=== PATIENT | female | born 1985 | race Caucasian/White ===

== ENCOUNTER → 2019-12-14 16:04 | Outpatient (BNVA) | payer MEDICAID, SELFPAY | PROVIDERS: Family Provider Nurse Practitioner; PCP Nurse Practitioner; Visit Provider Obstetrics & Gynecology | DX: O09.93 Supervision of high risk pregnancy, unspecified, third trimester (principal); Z3A.00 Weeks of gestation of pregnancy not specified | CPT/HCPCS: 80307; 81000; 85007; 85027 ==

== ENCOUNTER → 2019-12-18 10:49 | Outpatient (BNVA) | payer MEDICAID, SELFPAY | PROVIDERS: Family Provider Nurse Practitioner; PCP Nurse Practitioner; Visit Provider Obstetrics & Gynecology | DX: Z34.93 Encounter for supervision of normal pregnancy, unspecified, third trimester (principal); Z3A.34 34 weeks gestation of pregnancy | CPT/HCPCS: 76815 ==

== ENCOUNTER → 2019-12-21 08:46 | Outpatient (BNVA) | payer MEDICAID, SELFPAY | PROVIDERS: Family Provider Nurse Practitioner; PCP Nurse Practitioner; Visit Provider Obstetrics & Gynecology | DX: O09.10 Supervision of pregnancy with history of ectopic pregnancy, unspecified trimester (principal); O09.93 Supervision of high risk pregnancy, unspecified, third trimester; Z98.891 History of uterine scar from previous surgery; Z30.2 Encounter for sterilization; Z3A.00 Weeks of gestation of pregnancy not specified | CPT/HCPCS: 83986; 84315; 87081 ==

== ENCOUNTER → 2019-12-28 10:44 | Day surgery (SDC) | payer MEDICAID, SELFPAY ==
[2019-12-28 10:56] VITALS: BP 131/80; PULSE 84; RESP 18; TEMP 36.6; O2SAT 97; BMI 39.6
[2019-12-28] MEDS: betamethasone susp 6 mg/mL 5 mL 12 MG IM (11:20)
== END ==
PROVIDERS: PCP Nurse Practitioner Family; Visit Provider Obstetrics & Gynecology
DX: Z98.891 History of uterine scar from previous surgery (principal); Z34.90 Encounter for supervision of normal pregnancy, unspecified, unspecified trimester; Z3A.00 Weeks of gestation of pregnancy not specified; Z30.2 Encounter for sterilization
CPT/HCPCS: 84315; 96372; J0702

== ENCOUNTER 2019-12-29 10:15 | Outpatient (CLI) | payer MEDICAID, SELFPAY ==
[2019-12-29] MEDS: betamethasone susp 6 mg/mL 5 mL 12 MG IM (10:44)
== END 2019-12-29 10:16 | disposition home or self-care (01) ==
LOC: OPOB 11:06
PROVIDERS: PCP Nurse Practitioner Family; Visit Provider Obstetrics & Gynecology
DX: O26.899 Other specified pregnancy related conditions, unspecified trimester (principal); Z3A.00 Weeks of gestation of pregnancy not specified
CPT/HCPCS: 96372; J0702

== ENCOUNTER 2020-01-01 05:21 | Inpatient (IN) | payer MEDICAID, SELFPAY ==
--- NOTE | 2019-12-28 11:07 | P.ANESASSM_ITS ---
Pre-Anesthetic Assessment Pre-Anesthetic Assessment: Height/Weight: Height 1.73 m Proposed Procedure: Operation Date: 01/01/20 11:00 Proposed Procedures p Section Repeat With Tubal [id number] Z34.90 Z98.891 Z30.2(Not Applicable) - Patel Leon MD Social: Social History: Tobacco and No alcohol Exam: Pre-Anes Outpt Exam: alert, oriented x 3, clear to auscultation bilaterally and regular rate & rhythm Airway: Submandibular: WNL Cervical ROM: WNL MP: 1 Dentition: Other (teeth ok) History/ROS: No significant history except as noted Pulmonary: Pulmonary: None reported CV/HEM: CV/HEM: None reported : : None reported Hepatic: Hepatic: None reported GI: GI: None reported Metabolic: Metabolic: Morbid obesity Musc/skel: Musc/skel: None reported Neuropsych: Neuropsych: Anxiety and Depression Anesthetic Plan: ASA status: 3 Anesthesia: Anesthesia Evaluation, Eval. for regional block and Regional (specify below) (SAB) Risk of > 500 ml blood loss (7ml/kg in children): Yes, adequate IV access and fluids planned PFSH Anesthesia PFSH: Medical History History of ectopic (~2012) Surgical History H/O section 03/04/2007: Primary . Performed in [place]. 06/02/2008: Classical . Performed in [place]. 09/30/2016: Repeat section performed that [facility] Family History Sister Thyroid condition Denies family history of Diabetes Clotting disorder Hyperlipidemia Anesthesia complication Bleeding disorder Hypertension Stroke Social History Smoking and tobacco status: current every day smoker cigarettes Alcohol intake: never Other details last substance use: Denies drug use Data Anesthesia Cardiac Studies: No Data to Display
[2020-01-01] VITALS (25 sets, daily range): BP systolic 84–162; BP diastolic 57–95; PULSE 60–87; RESP 16–18; TEMP 36.1–36.7; O2SAT 92–100; BMI 41.3
[2020-01-01] MEDS: lactated ringers 1,000 ML 999 ML IV (06:30)
[2020-01-01 06:36] LABS: Amphetamines Screen Urine Negative (Negative); Barbiturates Screen Urine Negative (Negative); Benzodiazepines Screen Urine Negative (Negative); Cocaine Screen Urine Negative (Negative); Opiate Screen Urine Negative (Negative); PCP Screen Urine Negative (Negative); THC Screen Urine Positive (Negative)
[2020-01-01] MEDS: citric acid-sodium citrate 30 mL UDC PO (06:50)
[2020-01-01] MEDS: ketorolac 30 mg/mL INJ IVP ×2 (06:50→14:00)
[2020-01-01] MEDS: metoclopramide 5 mg/mL SDV 2 mL 10 MG IVP (06:50)
[2020-01-01] MEDS: famotidine 20 mg/2 mL INJ IVP (06:50)
--- NOTE | 2020-01-01 06:54 | W.PM.OPSUD ---
Surgery/Procedure H&P Update DATE OF PROCEDURE: January 01, 2020 DATE H&P PERFORMED: 12/28/19 H&P UPDATE INFORMATION: I have reviewed H&P completed within last 30 days, I have examined patient prior to procedure, No changes to prior documentation and H&[place] is in [facility] [place] date indicated PREOP DIAGNOSIS: Prior classical section, Undesired fertility, at 36-0/7 PLANNED PROCEDURE: Operation Date: 01/01/20 07:00 Proposed Procedures p Section Repeat With Tubal [id number] Z34.90 Z98.891 Z30.2(Not Applicable) - Patel Leon MD
[2020-01-01 07:00] LABS: Basophils % 0.3 %; Eosinophils # 0.1 10^3/uL (0.0-0.8); Eosinophils % 0.8 %; Hematocrit 33.2 % (37.0-47.0); Hemoglobin 10.7 g/dL (11.5-15.3); Lymphocytes # 3.3 10^3/uL (0.8-4.8); Lymphocytes % 28.6 %; Mean Corpuscular HGB Conc 32.2 g/dL (30.0-36.0); Mean Corpuscular Hemoglobin 32.8 pg (28.0-34.0); Mean Corpuscular Volume 101.8 fL (81-99); Monocytes # 0.8 10^3/uL (0.2-0.9); Monocytes % 7.1 %; Neutrophils # 7.3 10^3/uL (1.8-7.7); Neutrophils % 62.7 %; Nucleated Red Blood Cells % 0 %; Platelet Count 172 10^3/cmm (130-400); Red Blood Count 3.26 10^6/uL (4.1-5.3); Red Cell Distribution Width 12.5 % (12.1-15.1); White Blood Count 11.6 10^3/uL (4.0-10.0)
--- NOTE | 2020-01-01 09:20 | PM.OP ---
Operative Report Date of procedure: January 01, 2020 Pre-op Diagnosis: 1. Prior classical section 2. Undesired fertility 3. Maternal obesity affecting in third trimester 4. Tobacco use during in third trimester 5. at 36-0/7 Post-op Diagnosis: 1. Prior classical section - delivered 2. Undesired fertility. 3. Maternal obesity affecting - delivered 4. Tobacco use during - delivered 5. at 36-0/7 weeks gestation 6. Viable female Procedure Done: Repeat low transverse section with bilateral tubal ligation (complete salpingectomy) Specimens removed/disposition: Right and left fallopian tubes. Surgeon: Patel Leon Cable Wirer: None Anesthesia: Other (Spinal) Estimated blood loss (mL): 800 IV fluids (mL): 1,800 Complications: None Findings: 1. Viable female infant, cephalic presentation, weight 5 lbs 10 oz (2545 g), length 19-1/4 inches, Apgars 9 at 1 minute and 9 at 5 minutes. 2. Normal-appearing uterus, tubes, and ovaries. 3. Minimal omental adhesions to the anterior abdominal wall. Brief History: Patient is a 34-year-old white female 6, para 2-1-2-3 with an LMP of 04/24/2019 and an EDC of 01/29/2020 based on LMP which placed her at 36-0/7 weeks gestation today. Her care had been mainly provided at [facility] in [place]. She transferred care to our office at 33 weeks gestation. Her has been complicated by having had 3 prior sections with 1 of those being a classical . She was also a smoker. She was also noted to be obese with a starting weight of 260 pounds. Due to her prior classical section, recommendations are to deliver during 36 the week. Because of the need for delivery, patient was given betamethasone on 12/27 and 12/28. She had also stated during the that she did not want to have any further children when to have her tubes tied. Different sterilization methods were discussed and she wished to have complete removal of the tubes. I had discussed with her in the office and again this morning that this is a nonreversible method and that once the tubes were completely removed it was impossible to reverse. Failure rates and risk for ectopic were also discussed. Questions were answered. Patient still wishes to have the tubes completely removed at time of section. Procedure: Patient was taken to the operating room where spinal anesthesia was obtained. She was prepped and draped in the usual sterile fashion in a dorsal supine position with a leftward tilt. Smiley catheter and sequential compression boots had been placed prior to starting the case. A Pfannenstiel skin incision was made with excision of her prior scar. The incision was carried down to the underlying fascia with the knife. Fascia was incised in the midline with the knife and extended laterally with Nelson scissors. Superior aspect of the fascia was grasped with Josephine clamps, elevated, and sharply and bluntly dissected. The inferior aspect of the fascia was grasped with Josephine clamps, elevated, and sharply and bluntly dissected. The rectus muscles were in the midline. Peritoneum was sharply entered. Peritoneal incision was extended both superiorly and inferiorly with good visualization of the bladder. An Yayo O retractor was inserted. The bladder was noted to be adherent high on the lower uterine segment. Bladder flap was created with some reflection of the bladder inferiorly. A transverse incision was made with the knife in the lower uterine segment. Clear fluid was obtained upon entry into the uterine cavity. The infant's head was delivered and one loop of shoulder cord was noted. The rest of the infant delivered atraumatically. Nose and mouth were suctioned with bulb suction. Cord was clamped and cut and the infant was handed off to Dr. Lao and the waiting nurses. Cord blood was obtained. Placenta was delivered via uterine massage. Patient received 20 units of Pitocin in the IV fluids. The uterus was exteriorized and cleared of clots and debris. The uterine incision was closed in a running locking fashion using 0 Vicryl suture. The incision was imbricated using 0 Vicryl suture in a horizontal mattress fashion. The incision was inspected and noted to be hemostatic. The left fallopian tube was grasped with [place] clamps. The mesosalpinx was transilluminated, identifying the vessels coming to the tubes. Using 2-0 chromic suture, the vessels coming through the mesosalpinx to the fallopian tube were individually tied. The mesosalpinx was then cut with electrocautery. The vessels at the distal end of the tube were tied with a free tie of 0 plain suture. The proximal end of the tube was tied with a free stitch of 0 plain suture. These were then cut, completely excising the tube. The ends were cauterized with electrocautery. The right fallopian tube was grasped with Luis clamps. The mesosalpinx was transilluminated, identifying the vessels coming to the tubes. Using 2-0 chromic suture, the vessels coming through the mesosalpinx to the fallopian tube were individually tied. The mesosalpinx was then cut with electrocautery. The vessels at the distal end of the tube were tied with a free tie of 0 plain suture. The proximal end of the tube was tied with a free stitch of 0 plain suture. These were then cut, completely excising the tube. The ends were cauterized with electrocautery. Posterior cul-de-sac was thoroughly irrigated and cleared of clots and blood. The uterus was returned to the abdomen. The uterine incision was irrigated and noted to be hemostatic. The gutters were cleared of clots and blood. At different times during the surgery increased amounts of clear fluid was noted around the area of the bladder. As a result decision was made to check for integrity of the bladder. Formula followed by saline was instilled through the catheter into the bladder until approximately 300 mL of fluid was inserted. No leaks were noted from the bladder into the abdominal or extraperitoneal areas. Bladder was then drained. The rectus muscles and peritoneum were reapproximated in the midline using interrupted stitches of 2-0 Vicryl suture. The muscle layer was irrigated and noted to be hemostatic. The fascia was reapproximated using 0 Vicryl suture in a running fashion. The subcutaneous layer was irrigated and brought to hemostasis using electrocautery. It was reapproximated using 3-0 plain suture in an interrupted fashion. Skin was reapproximated using 4-0 Vicryl suture in a subcuticular fashion. Steri-Strips were applied. Patient tolerated the procedures well. Sponge, needle, and instrument counts were correct. DRAINS: Smiley catheter POSTOPERATIVE STATUS: The patient was left to recover in satisfactory condition
--- NOTE | 2020-01-01 10:05 | PC.NURSE ---
Denise from [facility] contacted the OB department asking if there were any concerns regarding patient. Denise stated she spoke with the patient yesterday and knew the patient was going to be arriving at 5 am this morning. Reported that there was a positive drug screen upon arrival this morning. Denise stated a new hotline event would have to be reported to the 800 number.
--- NOTE | 2020-01-01 11:34 | PC.NURSE ---
Dr. Zurita notified of patient's request for pain medication. Orders received that patient may receive the hydrocodone ordered by Dr. Leon, patient needs to wear a continuous pulse ox monitor.
[2020-01-01] MEDS: HYDROcodone-acetaminophen 5-325 mg Tablet PO ×2 (11:35→19:35)
[2020-01-01] MEDS: dextrose 5%-lactated ringers 1,000 ML 125 ML IV (11:40)
--- NOTE | 2020-01-01 16:56 | PC.NURSE ---
Discussed removing IV with patient, as well as her ambulating downstairs. Patient said That's fine, I been walking around in here. Re-educated patient she was instructed not to get up without assistance. Patient stated I know, this isn't my first rodeo.
[2020-01-01] MEDS: docusate sodium 100 mg Capsule PO (19:31)
[2020-01-01] MEDS: diazePAM 5 mg Tablet PO (21:07)
[2020-01-02] VITALS: BP 120/78; PULSE 72; RESP 16; TEMP 36.5; O2SAT 97
[2020-01-02 04:00] VITALS: BP 118/70; PULSE 78; RESP 18; TEMP 36.6; O2SAT 96
[2020-01-02] MEDS: HYDROcodone-acetaminophen 5-325 mg Tablet PO ×3 (04:03→12:51)
[2020-01-02 06:30] LABS: Hematocrit 32.8 % (37.0-47.0); Hemoglobin 10.5 g/dL (11.5-15.3); Mean Corpuscular Hemoglobin 32.5 pg (28.0-34.0); Mean Corpuscular Volume 101.5 fL (81-99); Mean Platelet Volume 12.8 fL (7.4-10.4); Platelet Count 170 10^3/cmm (130-400); Red Blood Count 3.23 10^6/uL (4.1-5.3); Red Cell Distribution Width 12.6 % (12.1-15.1); White Blood Count 10.3 10^3/uL (4.0-10.0)
[2020-01-02] MEDS: prenatal vitamin Capsule 1 CAP PO (07:23)
[2020-01-02] MEDS: diazePAM 5 mg Tablet PO (07:23)
[2020-01-02] MEDS: citalopram 20 mg Tablet PO (08:25)
[2020-01-02] MEDS: docusate sodium 100 mg Capsule PO (08:25)
[2020-01-02 10:03] VITALS: BP 148/81; PULSE 71; RESP 16; TEMP 36.7
--- NOTE | 2020-01-02 11:16 | ANE.PACU2 ---
Inpatient post-anesthesia follow up: Airway intact: Yes Vital signs: Temperature 98.0 F Pulse Rate 71 Respiratory Rate 16 Blood Pressure 148/81 Pulse Oximetry 96 Oxygen Delivery Me thod Room Air Oxygen Flow Rate Fraction of Inspir ed Oxygen Hydration adequate: Yes Nausea and vomiting: No Pain level: 2 Mental status: Baseline Additional Comments: Denies headache, up and walking since epidural removed, no signs of infection at spinal site
--- NOTE | 2020-01-02 12:38 | P.DS_ITS ---
Discharge Providers Date of Admission: 01/01/20 05:21 Date of Discharge: January 02, 2020 Attending Provider at Admission: Patel Leon MD Attending Provider at Discharge: Patel Leon MD Primary Care Provider: Bhavna Watts NP Diagnoses at Discharge Discharge Diagnosis (1) Maternal care for unspecified type scar from previous delivery: Status: Acute Qualifiers: Previous delivery type: vertical uterine incision Qualified Code(s): O34.212 - Maternal care for vertical scar from previous delivery (2) complicated by mental disorder, delivery: Status: Acute (3) Tobacco smoking affecting : Status: Acute Qualifiers: Trimester: third trimester Qualified Code(s): O99.333 - Smoking (tobacco) complicating , third trimester (4) Contraception management: Status: Acute Qualifiers: Contraceptive encounter type: sterilization Qualified Code(s): Z30.2 - Encounter for sterilization (5) Obesity affecting : Status: Acute Qualifiers: Trimester: third trimester Qualified Code(s): O99.213 - Obesity complicating , third trimester Reason for Visit Reason for Visit: repeat c section with tubal 12/31 Hospital Course Hospital Course: Patient is a 7, para 2-1-2-3 with an LMP of 04/24/2019 and an EDC of 01/29/2020 based on LMP, which placed her at 36-0/7 weeks gestation. care has been mainly provided at [facility] in [place]. She t ransferred to our care at approximately 33 weeks gestation due to need for repeat . She has had 3 prior 's with the second 1 being a classical . Due to her prior classical , recommendations are to deliver by repeat during 36th week. She was also requesting sterilization with complete removal of tubes. As a result, she is presenting for that at this time. A repeat section with tubal ligation (bilateral complete salpingectomy) were performed. She delivered a female infant weighing 5 pounds 10 ounces (2545 g) with a length of 19-1/4 inches and Apgars of 9 at 1 minute and 9 at 5 minutes. She received Duramorph in her spinal for pain management following surgery. She did well following surgery. She did have problems with anxiety following surgery and had been started on Valium and citalopram (she had been on these before getting ). POSTOPERATIVE DAY 1 Patient denies complaints. She reports that her pain had been well controlled. She reports tolerating regular diet without nausea or vomiting. She denied lightheadedness or dizziness with ambulation. She reported passing flatus. Her Smiley catheter had been removed and she was urinating without difficulty. She reported that she was doing better since starting the Valium. Physical Exam: See below Plan Activities were increased during the day and she did well with this. She was switched to oral pain medications which controlled her pain well. She was requesting to go home and was discharged in the afternoon of postoperative day 1. Discharge instructions were discussed with her. She was to follow-up in the office in 2 and 6 weeks following surgery. Physical Exam Const: COMMON NORMALS: no acute distress, average body habitus, alert and well nourished GENERAL APPEARANCE: well developed ORIENTATION/CONSCIOUSNESS: Yes oriented to person, Yes oriented to place and Yes oriented to time Resp: COMMON NORMALS: normal respiratory effort and clear to auscultation bilaterally AUSCULTATION: clear to auscultation bilaterally Cardio: COMMON NORMALS: regular rate, regular rhythm, No gallops present (Cardio) and No rub (Cardio) RATE: regular rate RHYTHM: regular rhythm GI: COMMON NORMALS: Soft to palpation, No hepatosplenomegaly present and no masses (Except for firm, tender uterus, approx 1 fingerbreath below umbilicus) INSPECTION: Yes incision (clean, dry, intact with steri-strips present.) AUSCULTATION: Yes normoactive bowel sounds PALPATION: Yes Soft to palpation, Yes Tenderness to palpation present (GI) (lower abdomen), Yes No hepatosplenomegaly present and No Hernia present : EXTERNAL FEMALE EXAM: No Hernia present Extremity: COMMON NORMALS: no calf tenderness GENERAL: Yes edema (trace to 1+ lower extremity edema bilaterally) Neuro: SENSORIUM/ORIENTATION: Yes alert, Yes oriented to person, Yes oriented to place and Yes oriented to time Psych: COMMON NORMALS: normal affect MOOD & AFFECT: Yes euthymic mood Urinary Catheter Management^: Smiley: Cath Placed During This Visit: yes, but has since been removed by the nurse Reason for Continuing Indwelling Catheter: Decision to DC Catheter Urinary Catheter Date of Insertion: 01/01/20 Urinary Catheter Time of Insertion: 07:32 Date Urinary Catheter Removed: 01/01/20 Time Urinary Catheter Discontinued: 17:10 Discharge Data Data Completed and Pending: Pending at discharge Category Date Time Status Retype for Pradip s ABO/Rh Routine Lab 01/01/20 07:23 Received Pathology: Surgic al [PTH] Routine Pth 01/01/20 11:02 Received Labs from last 24 hours 01/02/20 06:25 WBC 10.3 H RBC 3.23 L Hgb 10.5 L Hct 32.8 L MCV 101.5 H MCH 32.5 MCHC 32.0 RDW 12.6 Plt Count 170 MPV 12.8 H Vitals: Last Vital Signs Temp 98.0 F 01/02/20 10:03 Pulse 71 01/02/20 10:03 Resp 16 01/02/20 10:03 BP 148/81 01/02/20 10:03 Pulse Ox 96 01/02/20 04:00 Discharge Plan Discharge Patient Disposition: Home, Self-Care Condition: Stable Prescriptions: New citalopram 20 mg Tablet 20 mg PO DAILY Qty: 30 RF: 2 diazepam 5 mg Tablet 5 mg PO TID PRN (Reason: Anxiety) Qty: 30 RF: 0 hydrocodone-acetaminophen 5-325 mg Tablet 1 - 2 tab PO Q6H PRN (Reason: Moderate To Severe Pain) Qty: 30 RF: 0 ibuprofen 800 mg Tablet 800 mg PO TID PRN (Reason: pain) Qty: 40 RF: 0 Continued prenat.vits,chung,icl-dalp-hprch Tablet 1 tab PO DAILY RF: 0 Discharge Orders: Discharge Order (Routine); Ordered 01/02/20 Ordered By: Patel Leon Referrals: Patel Leon MD [Physician] - 01/17/20 1:00 pm (Your 2 week incision check has been scheduled for 01/17/2020 at 1:00 pm. Your 6 week follow up has been scheduled for 02/14/2020 at 7:45 am.) Discharge Diet: Regular Discharge Activity: Limit activity as instructed Patient Instructions: OB WHC, OB Discharge Report, OB Food/Drug Interaction Guide, OB Care at Home Discharge Date/Time: 01/02/20 13:10 Discharge Attestations Time Spent in Discharge Care*: less than 30 min Quality Metrics Clinical Quality Measures During this hospital stay, did patient experience: None Coding Level of Care Code Acute Customer Specialist for Chg Fwd Exam Detailed Diagnoses Maternal care for unspecified type scar from previous delivery O34.212 Previous delivery type: vertical uterine incision complicated by mental disorder, delivery O99.344 Tobacco smoking affecting O99.333 Trimester: third trimester Contraception management Z30.2 Contraceptive encounter type: sterilization Obesity affecting O99.213 Trimester: third trimester
[2020-01-02 12:44] VITALS: BP 139/93; PULSE 73; RESP 18; TEMP 36.9; O2SAT 98
== END 2020-01-02 13:10 | disposition home or self-care (01) | DRG 783 ==
PROVIDERS: Admitting Provider Obstetrics & Gynecology; PCP Nurse Practitioner Family; Visit Provider Obstetrics & Gynecology
PROC: 10D00Z1 Extraction of Products of Conception, Low, Open Approach (ICD-10-PCS; CPT 59514; principal; 2020-01-01 07:00)
DX: O65.5 Obstructed labor due to abnormality of maternal pelvic organs (principal); O60.14X0 Preterm labor third trimester with preterm delivery third trimester, not applicable or unspecified; O34.212 Maternal care for vertical scar from previous cesarean delivery; N85.8 Other specified noninflammatory disorders of uterus; O99.334 Smoking (tobacco) complicating childbirth; F17.210 Nicotine dependence, cigarettes, uncomplicated; Z37.0 Single live birth; O99.214 Obesity complicating childbirth; Z30.2 Encounter for sterilization; Z3A.36 36 weeks gestation of pregnancy
CPT/HCPCS: 12345; 36415; 51702; 58611; 59409; 80306; 85025; 85027; 86900; 88302; 96375; J0690; J1885; J2274; J2405; J2590; J2765; J3010; J3490; J7030